=== PATIENT | male | born 1995 | race Caucasian/White ===

== ENCOUNTER 2017-12-27 19:19 | Emergency (ER) | payer MEDICAID | END 2017-12-27 20:18 | disposition home or self-care (01) | LOC: D.ER 19:19 | DX: T67.5XXA Heat exhaustion, unspecified, initial encounter (principal); X58.XXXA Exposure to other specified factors, initial encounter; Y93.89 Activity, other specified; Y92.89 Other specified places as the place of occurrence of the external cause; T62.91XA Toxic effect of unspecified noxious substance eaten as food, accidental (unintentional), initial encounter ==

== ENCOUNTER 2021-01-23 15:54 | Emergency (ER) | payer MEDICAID ==
[~2021-01-23] VITALS: Ht 170.2 cm; Wt 117.7 kg
[2021-01-23 15:58] VITALS: BP 169/94; Ht 170.2 cm; Wt 117.7 kg
== END 2021-01-23 16:20 | disposition home or self-care (01) ==
LOC: D.ER 15:54
DX: R25.2 Cramp and spasm (principal); Z53.20 Procedure and treatment not carried out because of patient's decision for unspecified reasons